=== PATIENT | male | born 1955 | race Caucasian/White ===

== ENCOUNTER 2021-06-18 00:35 | Inpatient (IN) | payer OTHER ==
[2021-06-18 02:42] LABS: BASO % 0.5 % (0-2.0); EOS % 1.1 % (0-4.5); HEMATOCRIT 34.1 % (35.4-49); HEMOGLOBIN 11.2 GM/dL (11.7-16.9); LYMPH % 18.2 % (8-40); MCH 28.7 pg (25.7-33.7); MCHC 32.9 g/dl (32.0-35.9); MEAN CELL VOLUME 87.1 fl (80-96); MEAN PLT VOLUME 9.7 fl (7.5-11.1); MONO % 5.1 % (3.8-10.2); NEUT % 75.1 % (42.8-82.8); PLATELET COUNT 260 10^3/uL (134-434); RBC 3.91 M/mm3 (4.00-5.60); RDW 13.7 % (11.9-15.9); WHITE BLOOD COUNT 10.8 K/mm3 (4.0-10.0)
[2021-06-18 02:43] LABS: INR 0.97 (0.83-1.09)
[2021-06-18 02:46] LABS: ACTIVATED PTT 26.9 SECONDS (25.2-36.5)
[2021-06-18 03:00] LABS: CHLORIDE 105 mmol/L (98-107); SODIUM 141 mmol/L (136-145)
[2021-06-18 03:02] LABS: CALCIUM 8.5 mg/dL (8.5-10.1)
[2021-06-18 03:03] LABS: ALBUMIN 3.5 g/dl (3.4-5.0); ANION GAP 9 MMOL/L (8-16); BLOOD UREA NITROGEN 14.4 mg/dL (7-18); CO2 27 mmol/L (21-32); GLUCOSE,RANDOM 108 mg/dL (74-106); MAGNESIUM 2.1 mg/dL (1.8-2.4)
[2021-06-18 03:06] LABS: CREATININE 0.6 mg/dL (0.55-1.3); SGOT/AST 20 U/L (15-37); SGPT/ALT 24 U/L (13-61)
[2021-06-18 03:08] LABS: BILIRUBIN,TOTAL 0.3 mg/dL (0.2-1)
[2021-06-18 03:09] LABS: ALK PHOS 102 U/L (45-117)
[2021-06-18 06:58] VITALS: BMI 32.3
[2021-06-18] MEDS ORDERED: ACETAMINOPHEN 325 MG TABLET (FP) PO PRN (07:16)
[2021-06-18] MEDS ORDERED: IBUPROFEN 200 MG TABLET PO PRN (07:16)
[2021-06-18] MEDS: INSULIN SLIDING SCALE (NOVOLOG) 1 VIAL SQ SCH ×4 (07:29→21:44)
[2021-06-18 07:35] LABS: BASO % 0.5 % (0-2.0); EOS % 1.8 % (0-4.5); HEMATOCRIT 35.8 % (35.4-49); HEMOGLOBIN 11.7 GM/dL (11.7-16.9); LYMPH % 27.6 % (8-40); MCH 28.5 pg (25.7-33.7); MCHC 32.6 g/dl (32.0-35.9); MEAN CELL VOLUME 87.6 fl (80-96); MEAN PLT VOLUME 9.4 fl (7.5-11.1); MONO % 5.6 % (3.8-10.2); NEUT % 64.5 % (42.8-82.8); PLATELET COUNT 246 10^3/uL (134-434); RBC 4.09 M/mm3 (4.00-5.60); RDW 14.1 % (11.9-15.9); WHITE BLOOD COUNT 8.3 K/mm3 (4.0-10.0)
[2021-06-18 07:50] LABS: CHLORIDE 107 mmol/L (98-107); SODIUM 140 mmol/L (136-145)
[2021-06-18 07:53] LABS: ANION GAP 7 MMOL/L (8-16); BLOOD UREA NITROGEN 14.6 mg/dL (7-18); CALCIUM 8.6 mg/dL (8.5-10.1); CO2 26 mmol/L (21-32); GLUCOSE,RANDOM 101 mg/dL (74-106)
[2021-06-18 07:54] LABS: ALBUMIN 3.4 g/dl (3.4-5.0); MAGNESIUM 2.1 mg/dL (1.8-2.4)
[2021-06-18 07:56] LABS: CHOLESTEROL 158 mg/dL (50-200); CREATININE 0.6 mg/dL (0.55-1.3); SGOT/AST 18 U/L (15-37); SGPT/ALT 24 U/L (13-61); TRIGLYCERIDES 132 mg/dL (0-150)
[2021-06-18 07:57] LABS: PHOSPHOROUS 3.4 mg/dL (2.5-4.9)
[2021-06-18 07:58] LABS: BILIRUBIN,TOTAL 0.6 mg/dL (0.2-1); LDL CHOLESTEROL (ONLY SJRH) 88 mg/dL (5-100); TOT PROT 6.9 g/dl (6.4-8.2)
[2021-06-18 07:59] LABS: ALK PHOS 100 U/L (45-117); HDL CHOLESTEROL 62 mg/dL (40-60)
[2021-06-18 08:00] LABS: LDH 174 U/L (87-246)
[2021-06-18] MEDS: METHYL SALICYLATE/MENTHOL OINT 30 GM TUBE TP SCH ×2 (09:57→21:29)
[2021-06-18] MEDS: ENALAPRIL MALEATE 10 MG TABLET PO SCH ×2 (09:58→21:26)
[2021-06-18] MEDS: ENOXAPARIN NA (PORCINE) 40 MG/0.4 ML DISP.SYRIN SQ SCH (09:58)
[2021-06-18] MEDS: amLODIPine BESYLATE 10 MG TABLET (FP) PO SCH (09:58)
[2021-06-18 20:35] LABS: EPI CELLS 1 /uL (0-25.1); HYALINE CASTS 0 /uL (0-3.1); URINE APPEARANCE CLEAR; URINE BACTERIA 3 /uL (0-1359); URINE BILIRUBIN NEGATIVE (NEGATIVE); URINE COLOR YELLOW; URINE GLUCOSE (UA) NEGATIVE (NEGATIVE); URINE KETONE NEGATIVE (NEGATIVE); URINE LEUK ESTERASE TRACE (NEGATIVE); URINE NITRITE NEGATIVE (NEGATIVE); URINE PROTEIN NEGATIVE (NEGATIVE); URINE RBC 6 /uL (0-23.9); URINE UROBILINOGEN 0.2 mg/dL (0.2-1.0); URINE WBC 8 /uL (0-25.8)
[2021-06-18 20:46] LABS: COCAINE, UR NEGATIVE (NEGATIVE); METHADONE, UR NEGATIVE (NEGATIVE); OPIATES, URI NEGATIVE (NEGATIVE)
[2021-06-18 20:47] LABS: PHENCYCLIDINE,URINE NEGATIVE (NEGATIVE); URINE AMPHETAMINES NEGATIVE (NEGATIVE)
[2021-06-18 20:50] LABS: URINE BENZODIAZEPINES NEGATIVE (NEGATIVE)
[2021-06-18 21:02] LABS: URINE BARBITURATES NEGATIVE (NEGATIVE)
[2021-06-18] MEDS ORDERED: PT OWN MED DRAWER 7, Y5N ONE (21:18)
[2021-06-18] MEDS: NABUMETONE 500 MG TABLET PO SCH (21:28)
[2021-06-18] MEDS ORDERED: MELATONIN 1 MG TABLET PO ONE (22:00)
[2021-06-19] MEDS: INSULIN SLIDING SCALE (NOVOLOG) 1 VIAL SQ SCH ×4 (06:20→21:43)
[2021-06-19 07:03] LABS: BASO % 0.3 % (0-2.0); HEMATOCRIT 35.5 % (35.4-49); HEMOGLOBIN 11.6 GM/dL (11.7-16.9); LYMPH % 31.7 % (8-40); MCH 28.7 pg (25.7-33.7); MCHC 32.7 g/dl (32.0-35.9); MEAN CELL VOLUME 87.6 fl (80-96); MEAN PLT VOLUME 9.8 fl (7.5-11.1); MONO % 5.6 % (3.8-10.2); NEUT % 59.4 % (42.8-82.8); PLATELET COUNT 262 10^3/uL (134-434); RBC 4.05 M/mm3 (4.00-5.60); WHITE BLOOD COUNT 7.7 K/mm3 (4.0-10.0)
[2021-06-19 07:22] LABS: ALBUMIN 3.6 g/dl (3.4-5.0); BLOOD UREA NITROGEN 16.1 mg/dL (7-18); CALCIUM 8.9 mg/dL (8.5-10.1); MAGNESIUM 2.1 mg/dL (1.8-2.4)
[2021-06-19 07:25] LABS: BILIRUBIN,TOTAL 0.6 mg/dL (0.2-1); CREATININE 0.6 mg/dL (0.55-1.3); PHOSPHOROUS 3.4 mg/dL (2.5-4.9); TOT PROT 7.2 g/dl (6.4-8.2)
[2021-06-19] MEDS: ENALAPRIL MALEATE 10 MG TABLET PO SCH ×2 (09:35→21:18)
[2021-06-19] MEDS: TAMSULOSIN HCL 0.4 MG CAP PO SCH (09:35)
[2021-06-19] MEDS: amLODIPine BESYLATE 10 MG TABLET (FP) PO SCH (09:35)
[2021-06-19] MEDS: NABUMETONE 500 MG TABLET PO SCH ×2 (09:36→21:19)
[2021-06-19] MEDS: SOLIFENACIN SUCCINATE 5 MG TAB PO SCH (09:36)
[2021-06-19] MEDS: ENOXAPARIN NA (PORCINE) 40 MG/0.4 ML DISP.SYRIN SQ SCH (09:37)
[2021-06-19] MEDS: METHYL SALICYLATE/MENTHOL OINT 30 GM TUBE TP SCH ×2 (09:40→21:24)
[2021-06-19] MEDS ORDERED: traMADol HCL 50 MG TABLET PO ONE (11:01)
[2021-06-19] MEDS: ASPIRIN COATED 81 MG TABLET.EC PO SCH (16:04)
[2021-06-19] MEDS ORDERED: MELATONIN 5 MG TABLETS PO PRN (17:29)
[2021-06-19] MEDS ORDERED: ONDANSETRON 4 MG/2 ML VIAL IVPUSH PRN (17:34)
[2021-06-19] MEDS ORDERED: ACETAMINOPHEN 500 MG TABLET (FP) PO PRN (19:03)
[2021-06-19] MEDS ORDERED: LIDOCAINE 5% TOPICAL PATCH TP SCH (20:00)
[2021-06-19] MEDS ORDERED: PT OWN MED DRAWER 7, Y5N ONE (21:05)
[2021-06-20] MEDS: INSULIN SLIDING SCALE (NOVOLOG) 1 VIAL SQ SCH ×2 (06:34→11:14)
[2021-06-20 07:22] LABS: BASO % 0.5 % (0-2.0); EOS % 3.8 % (0-4.5); HEMATOCRIT 36.8 % (35.4-49); HEMOGLOBIN 12.2 GM/dL (11.7-16.9); LYMPH % 28.2 % (8-40); MCH 28.9 pg (25.7-33.7); MCHC 33.3 g/dl (32.0-35.9); MEAN CELL VOLUME 86.9 fl (80-96); MEAN PLT VOLUME 9.8 fl (7.5-11.1); MONO % 7.4 % (3.8-10.2); NEUT % 60.1 % (42.8-82.8); PLATELET COUNT 257 10^3/uL (134-434); RBC 4.23 M/mm3 (4.00-5.60); WHITE BLOOD COUNT 8.5 K/mm3 (4.0-10.0)
[2021-06-20 07:41] LABS: ALBUMIN 3.6 g/dl (3.4-5.0); CALCIUM 8.7 mg/dL (8.5-10.1)
[2021-06-20 07:43] LABS: BLOOD UREA NITROGEN 14.1 mg/dL (7-18); MAGNESIUM 2.2 mg/dL (1.8-2.4)
[2021-06-20 07:45] LABS: CREATININE 0.7 mg/dL (0.55-1.3); PHOSPHOROUS 3.6 mg/dL (2.5-4.9)
[2021-06-20 07:47] LABS: BILIRUBIN,TOTAL 0.8 mg/dL (0.2-1); TOT PROT 7.4 g/dl (6.4-8.2)
[2021-06-20] MEDS ORDERED: LIDOCAINE PATCH REMOVAL MC SCH ×4 (08:00→22:00)
[2021-06-20] MEDS: ENOXAPARIN NA (PORCINE) 40 MG/0.4 ML DISP.SYRIN SQ SCH (09:05)
[2021-06-20] MEDS: NABUMETONE 500 MG TABLET PO SCH (09:06)
[2021-06-20] MEDS: ENALAPRIL MALEATE 10 MG TABLET PO SCH (09:06)
[2021-06-20] MEDS: ASPIRIN COATED 81 MG TABLET.EC PO SCH (09:06)
[2021-06-20] MEDS: TAMSULOSIN HCL 0.4 MG CAP PO SCH (09:06)
[2021-06-20] MEDS: amLODIPine BESYLATE 10 MG TABLET (FP) PO SCH (09:06)
[2021-06-20] MEDS: SOLIFENACIN SUCCINATE 5 MG TAB PO SCH (09:06)
[2021-06-20] MEDS: METHYL SALICYLATE/MENTHOL OINT 30 GM TUBE TP SCH (09:09)
[2021-06-20] MEDS ORDERED: LIDOCAINE 5% TOPICAL PATCH TP SCH ×3 (10:00)
[2021-06-20 10:36] VITALS: PULSE 72
[2021-06-20 14:40] VITALS: BP 125/70; TEMP 97.8
== END 2021-06-20 18:48 | disposition home or self-care (01) | DRG 93 ==
LOC: JER 00:35 → JERBED 03:46 → UNDOADMOB 03:46 → INTOOBSV 03:46 → JERBED 06:19 → J4W 06:19 → JERBED 10:07 → J4W 10:07 → UNDOADMOB 10:07 → JERBED 06-20 14:28 → INTOOBSV 06-20 14:28 → J4W 06-20 14:28 → OBSVTOIN 06-20 14:28
PROVIDERS: ADMIT Internal Medicine; ATTEND Student in an Organized Health Care Education/Training Program
DX: I67.1 Cerebral aneurysm, nonruptured (principal); I10 Essential (primary) hypertension; E78.5 Hyperlipidemia, unspecified; E11.9 Type 2 diabetes mellitus without complications; I48.91 Unspecified atrial fibrillation; K43.9 Ventral hernia without obstruction or gangrene; F12.90 Cannabis use, unspecified, uncomplicated; N40.0 Benign prostatic hyperplasia without lower urinary tract symptoms; D64.9 Anemia, unspecified; R55 Syncope and collapse; I25.2 Old myocardial infarction; M17.0 Bilateral primary osteoarthritis of knee; F17.210 Nicotine dependence, cigarettes, uncomplicated; I25.119 Atherosclerotic heart disease of native coronary artery with unspecified angina pectoris; E66.9 Obesity, unspecified; Z68.32 Body mass index [BMI] 32.0-32.9, adult; M54.2 Cervicalgia; I95.2 Hypotension due to drugs; T44.6X5A Adverse effect of alpha-adrenoreceptor antagonists, initial encounter; Z95.5 Presence of coronary angioplasty implant and graft
CPT/HCPCS: 36415; 70450-TC; 70544-TC; 70551-TC; 71045-TC-FY; 72125-TC; 80053; 80061; 80307; 81003; 82550; 82607; 82728; 82746; 82962; 83010; 83036; 83540; 83550; 83615; 83721; 83735; 84100; 84443; 84484; 85025; 85045; 85610; 85730; 93005; 93010; 93306-TC; 93880-TC; 97116-GP; 97161-GP; 99285-25; C9803; U0003; U0005

== ENCOUNTER 2022-05-24 04:21 | Day surgery (SDC) | payer OTHER ==
[2022-05-22 10:28] VITALS: BMI 25.7
[2022-05-24] MEDS ORDERED: LIDOCAINE HCL/PF 1% SDV 5ML VIAL ONE (07:14)
[2022-05-24] MEDS ORDERED: LIDOCAINE 1% P/F 10 MG/ML VIAL INF ONE (11:38)
[2022-05-24 13:07] VITALS: BP 135/77; PULSE 63; TEMP 98.2
== END 2022-05-24 12:50 | disposition home or self-care (01) ==
LOC: JASU-SURG 04:21
PROVIDERS: ATTEND Pain Medicine Pain Medicine
PROC: 01HY3MZ Insertion of Neurostimulator Lead into Peripheral Nerve, Percutaneous Approach (ICD-10-PCS; principal; 2022-05-24 10:45)
DX: G89.4 Chronic pain syndrome (principal); M25.562 Pain in left knee
CPT/HCPCS: 64555; C1778

== ENCOUNTER 2023-01-10 16:56 | Emergency (ER) | payer OTHER ==
[2023-01-10 17:01] VITALS: BP 117/73; PULSE 83; RESP 18; TEMP 98; BMI 28.3
[2023-01-10 18:31] LABS: BASO % 0.5 % (0-2.0); EOS % 1.7 % (0-4.5); HEMATOCRIT 32.4 % (35.4-49); LYMPH % 33.8 % (8-40); MCH 30.1 pg (25.7-33.7); MEAN CELL VOLUME 88.7 fl (80-96); MEAN PLT VOLUME 8.7 fl (7.5-11.1); MONO % 7.7 % (3.8-10.2); NEUT % 56.3 % (42.8-82.8); PLATELET COUNT 289 10^3/uL (134-434); RBC 3.65 M/mm3 (4.00-5.60); RDW 13.3 % (11.9-15.9); WHITE BLOOD COUNT 8.5 K/mm3 (4.0-10.0)
[2023-01-10 18:43] LABS: INR 1.08 (0.83-1.09); PROTHROMBIN TIME (PATIENT) 12.5 SEC (9.7-13.0)
[2023-01-10 18:46] LABS: ACTIVATED PTT 31.8 SECONDS (25.2-36.5)
[2023-01-10 18:58] LABS: CALCIUM 9.1 mg/dL (8.5-10.1)
[2023-01-10 18:59] LABS: ALBUMIN 3.7 g/dl (3.4-5.0); BLOOD UREA NITROGEN 20.3 mg/dL (7-18)
[2023-01-10 19:02] LABS: CREATININE 0.8 mg/dL (0.55-1.3)
[2023-01-10 19:03] LABS: BILIRUBIN,TOTAL 0.8 mg/dL (0.2-1)
[2023-01-10 19:04] LABS: TOT PROT 7.4 g/dl (6.4-8.2)
[2023-01-10 19:07] LABS: N-TERMINAL BNP 36.2 pg/ml (5-125)
[2023-01-10 19:27] LABS: EPI CELLS 12 /uL (0-25.1); HYALINE CASTS 6 /uL (0-3.1); PH,URINE 5.5 (5.0-8.0); URINE APPEARANCE CLEAR; URINE BACTERIA 13 /uL (0-1359); URINE BILIRUBIN NEGATIVE (NEGATIVE); URINE COLOR YELLOW; URINE GLUCOSE (UA) NEGATIVE (NEGATIVE); URINE KETONE NEGATIVE (NEGATIVE); URINE LEUK ESTERASE 2+ (NEGATIVE); URINE NITRITE NEGATIVE (NEGATIVE); URINE PROTEIN TRACE (NEGATIVE); URINE RBC 17 /uL (0-23.9); URINE UROBILINOGEN 0.2 mg/dL (0.2-1.0); URINE WBC 141 /uL (0-25.8)
[2023-01-10] MEDS ORDERED: CEFTRIAXONE 1,000 MG in DEXTROSE 5%-WATER - 50 ML IVPB ONE (20:08)
[2023-01-10] MEDS ORDERED: CEPHALEXIN MONOHYDRATE 500 MG CAPSULE (UD) PO ONE (20:12)
[2023-01-10] MEDS ORDERED: CEPHALEXIN MONOHYDRATE 500 MG CAPSULE (UD) ONE (21:01)
== END 2023-01-10 21:00 | disposition home or self-care (01) ==
LOC: JER 16:56
DX: N39.0 Urinary tract infection, site not specified (principal); I83.893 Varicose veins of bilateral lower extremities with other complications
CPT/HCPCS: 36415; 71045-TC-FY; 80053; 81003; 83735; 83880; 84484; 85025; 85610; 85730; 93005; 93010; 93971-TC; 99285-25; C9803-CS; U0003; U0005

== ENCOUNTER 2023-07-09 06:56 | Day surgery (SDC) | payer BC, OTHER ==
[2023-07-09 07:39] VITALS: BMI 26.7
[2023-07-09] MEDS ORDERED: MIDAZOLAM HCL 2 MG/2 ML SINGLE DOSE VIAL ONE (08:14)
[2023-07-09] MEDS ORDERED: PROPOFOL 20 ML ONE (08:14)
[2023-07-09] MEDS ORDERED: ONDANSETRON 4 MG/2 ML VIAL ONE (08:38)
[2023-07-09] MEDS ORDERED: DEXAMETHASONE SOD PHOSPHATE 4 MG/1 ML VIAL ONE (08:38)
[2023-07-09 09:10] VITALS: BP 141/81; TEMP 96.9
[2023-07-09 09:29] VITALS: PULSE 61; RESP 16
== END 2023-07-09 09:29 | disposition home or self-care (01) ==
LOC: FASU 06:56
PROVIDERS: ATTEND Orthopaedic Surgery Hand Surgery
PROC: 0JBK0ZX Excision of Left Hand Subcutaneous Tissue and Fascia, Open Approach, Diagnostic (ICD-10-PCS; principal; 2023-07-09 08:39)
DX: D21.12 Benign neoplasm of connective and other soft tissue of left upper limb, including shoulder (principal)
CPT/HCPCS: 82962; 88305-TC

== ENCOUNTER 2024-05-10 04:19 | Day surgery (SDC) | payer OTHER ==
[2024-05-05 15:03] VITALS: BMI 28.3
[2024-05-10] MEDS ORDERED: MIDAZOLAM HCL 2 MG/2 ML SINGLE DOSE VIAL ONE (10:45)
[2024-05-10] MEDS ORDERED: LIDOCAINE HCL/PF 2% SDV 5ML VIAL ONE (11:10)
[2024-05-10 12:45] VITALS: RESP 18
[2024-05-10 12:46] VITALS: BP 126/62; PULSE 75; TEMP 97.8
== END 2024-05-10 13:00 | disposition home or self-care (01) ==
LOC: JASU-SURG 04:19
PROVIDERS: ATTEND Urology
PROC: 0TF4XZZ Fragmentation in Left Kidney Pelvis, External Approach (ICD-10-PCS; principal; 2024-05-10 11:00)
DX: N20.0 Calculus of kidney (principal)
CPT/HCPCS: 82962